=== PATIENT | female | born 1990 | race Caucasian/White ===

== ENCOUNTER 2023-02-17 20:52 | Emergency (ER) | payer SELFPAY ==
[~2023-02-17] VITALS: Ht 154.9 cm; Wt 49.4 kg
[2023-02-17 22:02] LABS: BASO % 0.2 % (0.0-1.0); EOS % 0.6 % (0.0-3.0); HEMATOCRIT 43.9 % (36.0-47.0); HEMOGLOBIN 14.5 g/dl (12.0-15.5); LYMPH # 1.4 10^3/uL (1.5-5.0); LYMPH % 21.4 % (24.0-44.0); MEAN CORPUSCULAR HEMOGLOBIN 30.9 pg (27.0-33.0); MEAN CORPUSCULAR VOLUME 93.6 fl (80.0-96.0); MONO # 0.4 10^3/uL (0.0-0.8); MONO % 6.9 % (2.0-8.0); NEUTROPHILS # 4.5 10^3/uL (1.5-8.5); NEUTROPHILS % 70.6 % (36.0-66.0); PLATELET COUNT, AUTOMATED 290 10^3/uL (150-450); RED BLOOD COUNT 4.69 10^6/uL (4.00-5.40); WHITE BLOOD COUNT 6.4 10^3/uL (4.0-10.0)
[2023-02-17] MEDS ORDERED: diphenhydrAMINE 50MG/ML VIAL IV STA (22:07)
[2023-02-17] MEDS ORDERED: FAMOTIDINE 20MG/2ML VIAL IVP ONE (22:10)
[2023-02-17] MEDS ORDERED: methylPREDNISolone 125MG 2ML VIAL IV ONE (22:10)
[2023-02-17 22:18] LABS: ERYTHROCYTE SEDIMENTATION RATE 2 mm/hr (0-20)
[2023-02-17 22:19] LABS: BLOOD UREA NITROGEN 15 MG/DL (9-23); CALCIUM LEVEL 8.8 MG/DL (8.5-10.1); CARBON DIOXIDE LEVEL 28 MMOL/L (20-31); CHLORIDE LEVEL 106 MMOL/L (98-107); CREATININE FOR GFR 0.88 MG/DL (0.55-1.30); GLOMERULAR FILTRATION RATE > 60.0 (>60); GLUCOSE, FASTING 94 MG/DL (60-100); POTASSIUM SERUM 3.9 MMOL/L (3.5-5.1); SODIUM LEVEL 139 MMOL/L (136-145)
[2023-02-17 22:33] LABS: C REACTIVE PROTEIN QUANTITATIV < 0.40 MG/DL (<1.0)
[2023-02-17 22:38] LABS: HCG, SERUM QUALITATIVE NEGATIVE (NEGATIVE)
[2023-02-18] MEDS ORDERED: EPINEPHrine INJ 1 MG/ML 1ML AMP IM STA (00:13)
[2023-02-18 01:02] VITALS: BP 121/76
[2023-02-18] MEDS ORDERED: PEPC1TAB5 PO (01:56)
[2023-02-18] MEDS ORDERED: PRED20TA PO (01:56)
[2023-02-18] MEDS ORDERED: EPIP0.3I2 IM (01:56)
[2023-02-18] MEDS ORDERED: CETI5TAB2 PO (01:56)
[2023-02-18] MEDS ORDERED: predniSONE 20 MG TAB PO ONE (02:00)
[2023-02-18] MEDS ORDERED: FAMOTIDINE 20 MG TAB PO ONE (02:00)
[2023-02-18] MEDS ORDERED: CETIRIZINE (ZyrTEC) 10 MG TAB PO ONE (02:00)
== END 2023-02-18 02:21 | disposition home or self-care (01) ==
LOC: M ED 20:52
DX: T78.2XXA Anaphylactic shock, unspecified, initial encounter (principal)
CPT/HCPCS: 71046; 80048; 84703; 85025; 85652; 86140; 96372; 96374; 96375; 99283; J0171; J1200; J2930; S0028